=== PATIENT | male | born 1990 | race Caucasian/White ===

== ENCOUNTER 2022-11-05 19:20 | Emergency (ER) | payer OTHER, SELFPAY ==
[2022-11-05 19:27] VITALS: BP 144/96; PULSE 104; RESP 20; TEMP 37.4; O2SAT 100
[2022-11-05 19:32] VITALS: TEMP 37.4; O2SAT 100
[2022-11-05 19:44] VITALS: PULSE 112; O2SAT 100
[2022-11-05 19:45] VITALS: PULSE 102; O2SAT 99
--- NOTE | 2022-11-05 19:47 | ED_ITS ---
HPI - General Adult General Chief complaint: Fever Stated complaint: covid pos. fever Time Seen by Provider: 11/05/22 19:34 History of Present Illness HPI narrative: This 31-year-old male comes in reporting generalized malaise and fever that started today. He states that he did have some cough and congestion a couple weeks ago and was negative for COVID at that time. He tested positive with these symptoms today. Part of the reason he comes in is because his is and he has concern about any consequences for her getting COVID from him. He arrives here with normal vital signs and normal oximetry. He does have slight tachycardia. He does not currently have a fever. He does not complain of shortness of breath. Related Data Home Medications Medication Instructions Recorded Confirmed No Known Home Medications 11/05/22 11/05/22 Allergies Allergy/AdvReac Type Severity Reaction Status Date / Time amoxicillin Allergy Verified 11/05/22 19:27 Penicillins Allergy Verified 11/05/22 19:27 Review of Systems Status of ROS: Reports: 10 or more systems reviewed and unremarkable except as noted in History and below Narrative: Constitutional: No weight gain or loss. He reports a fever today. Eyes: No discharge. No vision changes. HENT: Nasal congestion, no sore throat, no ear pain. Cardiovascular: No chest pain, no palpitations. Respiratory: No shortness of breath, no wheezes, no cough. Gastrointestinal: No abdominal pain, no diarrhea. He does have some nausea but no vomiting. Genitourinary: No dysuria, no hematuria. Musculoskeletal: Normal range of motion. Skin: No rashes, no pruritis. Neurological: No dizziness, weakness, sensory change, speech change. Endo/Heme/Allergies: No bruising or bleeding. No polydipsia. Pysch: no suicidality, no anxiety, no insomnia. All other systems reviewed and are negative. PFSH PFSH Social History Smoking Status: Never smoker Second hand tobacco smoke exposure: No How often do you have a drink containing alcohol: never AUDIT-C Alcohol total score: 0 Non-prescribed substance use: marijuana (any form) Exam Narrative: Exam Narrative: Constitutional: Well-developed, well-nourished, no acute distress. HEENT: Normocephalic, atraumatic. Neck: Normal range of motion. Nontender. Supple. Heart: Regular. No murmurs. Tachycardia, rate 104 beats per minute. Intact distal pulses. Lungs: Clear to auscultation. No chest discomfort. No wheezes, rhonchi, or rales. Abdomen: Normal bowel sounds. Nontender. No rebound tenderness. Genitalia: Deferred. Back: No midline tenderness. Normal range of motion. Extremities: Normal range of motion. No injury. Skin: Intact. No rash. Warm. No erythema or pallor. Neurologic: No altered sensation. No weakness. Alert and oriented. Psychiatric: No suicidality. No anxiety or depression. No insomnia. Nursing notes and vitals signs are reviewed. Const: Vital Signs, click to edit/add: Vital Signs - 24 hr 11/05/22 19:27 11/05/22 19:32 Temperature 99.4 F 99.4 F Pulse Rate [Left P ulse Oximeter] 104 H Respiratory Rate 20 Blood Pressure [Ri ght Upper Arm] 144/96 H Pulse Oximetry 100 100 Oxygen Delivery Me thod Room Air Room Air Course Vital Signs Vital signs: Initial Vital Signs Temperature 99.4 F 11/05/22 19:27 Temperature Source Temporal Artery Scan 11/05/22 19:27 Pulse Rate 104 H 11/05/22 19:27 Pulse Rhythm 11/05/22 19:27 Respiratory Rate 20 11/05/22 19:27 Blood Pressure 144/96 H 11/05/22 19:27 Blood Pressure Mean 112 11/05/22 19:27 Pulse Oximetry 100 11/05/22 19:27 Oxygen Delivery Method 11/05/22 19:27 Vital Signs Temperature 99.4 F 11/05/22 19:27 Pulse Rate 104 H 11/05/22 19:27 Respiratory Rate 20 11/05/22 19:27 Blood Pressure 144/96 H 11/05/22 19:27 Pulse Oximetry 100 11/05/22 19:27 Oxygen Delivery Method 11/05/22 19:27 Temperature 99.4 F 11/05/22 19:32 Pulse Rate 104 H 11/05/22 19:27 Respiratory Rate 20 11/05/22 19:27 Blood Pressure 144/96 H 11/05/22 19:27 Pulse Oximetry 100 11/05/22 19:32 Oxygen Delivery Method 11/05/22 19:32 Medical Decision Making MDM Narrative Medical decision making narrative: This patient tested positive for COVID today. He states that he feels generalized malaise but does not report any shortness of breath and actually does not have any coughing. His is and I explained that there is no evidence that COVID affects except possibly if a COVID pneumonia develops. This patient has reassuring exam. He does have slight tachycardia but his lungs sound clear and he is not using accessory muscles for breathing and his oximetry is at 100% on room air. He did receive an oral dose of dexamethasone 10 mg. I did provide ride [facility] prescriptions for Toradol and Zofran. Discharge Plan Discharge Clinical Impression: COVID-19 Patient Disposition: Home, Self-Care Condition: Unchanged Additional Instructions: Take medication as needed and indicated. Follow up with MD or return if worsening, especially if becoming short of breath. Prescriptions: No Action No Known Home Medications Stand Alone Forms: [employer] Info Instructions
[2022-11-05] MEDS: dexAMETHasone 10 MG/ML inj PO (19:53)
[2022-11-05 20:00] VITALS: PULSE 100; O2SAT 100
[2022-11-05 20:02] VITALS: BP 125/87; PULSE 102; O2SAT 100
== END 2022-11-05 20:07 | disposition home or self-care (01) ==
LOC: ED 20:07
PROVIDERS: Emergency Provider Emergency Medicine Emergency Medical Services
DX: U07.1 COVID-19 (principal)
CPT/HCPCS: 99283; 99284; J1100